=== PATIENT | female | born 1960 | race Caucasian/White ===

== ENCOUNTER 2018-10-04 16:21 | Observation (INO) ==
[2018-10-04] MEDS ORDERED: Morphine Inj 4 MG/ML Vial IV.PUSH ONE (17:12)
[2018-10-04] MEDS ORDERED: Sodium Chlor 0.9% Inj 500 ML IV.SIG ONE (17:12)
--- NOTE | 2018-10-04 17:21 | ED ---
HPI General Chief Complaint: Shortness of Breath/Dyspnea Stated Complaint: SOB x3 Days Time Seen by Provider: 10/04/18 16:57 Source: patient Mode of arrival: ambulatory Limitations: no limitations History of Present Illness HPI narrative: The patient is a 58-year-old female who presents to the emergency department via private vehicle for chest pain and shortness of breath. The patient states she had a recent sinus and upper respiratory infection while she was in [facility]. The patient was on antibiotics and then subsequently hospitalized for 5 days while she was in [facility]. The patient was discharged home and subsequently developed chest pain. The chest pain is described as pressure, heaviness, substernal, nonradiating, and associated shortness of breath. The patient's symptoms are worse when she lies supine, however, are worse with exertion such as power washing the house. The patient denies any history of pulmonary embolism or DVT, does note recent travel, recent hospitalization, but denies any recent surgery. The patient saw her primary physician, Dr. Haylie Lewis, who placed her on antibiotics. The patient denies any fever, chills, sweats, or new cough. The patient does have a history of tobacco use, quit smoking 3-4 weeks ago. The patient does have a history of borderline hypertension, hyperlipidemia, but denies any history of CAD, diabetes, significant early family medical history for heart disease. Symptoms are moderate and progressive. MD complaint: Reports chest pain Onset (ago): week(s) Duration: intermittent Onset: during exertion Pain location: Reports substernal Severity: moderate Severity scale (1-10): 6 Quality: Reports heaviness Pain radiation: Reports none Relieving factors: rest Exacerbating factors: exertion and supine Context: Reports recent illness and recent travel Associated symptoms: Reports dyspnea Treatments prior to arrival chest pain: Reports none Related Data On Oral Contraceptives: No Home Medications Medication Instructions Recorded Confirmed levofloxacin 500 mg PO DAILY 10/04/18 10/04/18 montelukast [Singulair] 10 mg PO QPM 10/04/18 10/04/18 omeprazole 20 mg PO DAILY 10/04/18 10/04/18 rosuvastatin 20 mg PO DAILY 10/04/18 10/04/18 Allergies Allergy/AdvReac Type Severity Reaction Status Date / Time No Known Allergies Allergy Verified 10/04/18 16:28 Review of Systems ROS: all other systems reviewed are negative PMFSH Medical History Medical History GERD (gastroesophageal reflux disease) (Acute) Hiatal hernia (Acute) High cholesterol (Acute) Seasonal allergies (Acute) Surgical History Surgical History History of arthroscopic knee surgery (Acute) History of delivery (Acute) History of ear surgery (Acute) Social History Social History Substance History: No History of Abuse Smoking Status: Former smoker How Often Do You Have a Drink Containing Alcohol: 2 to 4 times a month Recent Travel in [facility] within the Last 8 Weeks: No Recent Out of Country Travel within the Last 8 Weeks: No Exam Narrative Exam Narrative: GENERAL: Awake, alert, pleasant 58-year-old female who appears her stated age and is in no acute respiratory distress. SKIN: Focused skin assessment warm/dry. HEAD: Atraumatic. Normocephalic. EYES: Pupils equal and round. No scleral icterus. No injection or drainage. ENT: No nasal bleeding or discharge. Mucous membranes pink and moist. NECK: Trachea midline. No JVD. CARDIOVASCULAR: Regular rate and rhythm. No murmur appreciated. Heart rate in the 80s. RESPIRATORY: No accessory muscle use. Clear to auscultation. Breath sounds equal bilaterally. GASTROINTESTINAL: Abdomen soft, non-tender, nondistended. MUSCULOSKELETAL: No obvious deformities. No clubbing. No cyanosis. No edema. Negative Homans sign bilaterally. NEUROLOGICAL: Awake and alert. No obvious cranial nerve deficits. Motor grossly within normal limits. Normal speech. PSYCHIATRIC: Appropriate mood and affect; insight and judgment normal. Course Initial Documented Vital Signs Temperature 97.9 F 10/04/18 16:32 Pulse Rate 60 10/04/18 16:32 Respiratory Rate 18 10/04/18 16:32 Blood Pressure 176/81 H 10/04/18 16:32 Pulse Oximetry 99 10/04/18 16:32 Last Documented Vital Signs Temperature 97.9 F 10/04/18 16:32 Pulse Rate 57 L 10/04/18 17:58 Respiratory Rate 18 10/04/18 17:58 Blood Pressure 175/80 H 10/04/18 17:58 Pulse Oximetry 100 10/04/18 17:58 Clinical Decision Support PERC Rule Age greater than or equal to 50: Yes HR greather than or equal to 100: No Sa02 on room air is less than 95%: No Unilateral Leg Swelling: No Hemoptysis: No Recent Surgery or Trauma: No Prior PE or DVT: No Hormone Use: No Wells' Criteria Questions Clinical Signs and Symptoms of DVT: No PE is primary diagnosis or equally likely: No Heart Rate greater than 100: No Immobilized at least 3 days or Surgery in previous 4 weeks: Yes Previous, objectively diagnosed PE or DVT: No Hemoptysis: No Malignancy with treatment within 6 months or palliative: No Wells' Criteria Score Wells' Criteria Score: 1.5 Medical Decision Making MDM Narrative Medical decision making narrative: IV was established, labs are drawn and sent, and the patient was placed on cardiac telemetry monitoring and continuous pulse oximetry monitoring. EKG was ordered and interpreted. Chest x-ray was obtained. D-dimer was sent to lab this patient was recently hospitalized and recently had a prolonged travel from [facility]. Troponin and CPK were sent to lab. The patient was administered aspirin, morphine, Zofran, and Nitropaste. D -dimer was 0.25, therefore, no indication for CT pulmonary angiogram. The patient's troponin and CPK are unremarkable. BNP is unremarkable. The patient does have chest pressure with shortness of breath, will require serial cardiac enzymes and further evaluation for stress test. If stress test is unremarkable , patient may be candidate for echocardiogram to rule out pericardial effusion, however, she is not tachycardic. I discussed the patient is with Dr. Flor who agrees with 23-hour observation. Medical Screen Exam Complete: Yes Emergency Medical Condition: Yes Differential Diagnosis Differential Diagnosis: Differential diagnosis includes ACS, STEMI, pulmonary embolism, pneumonitis, pneumonia, pericardial effusion, pleural effusion, GERD, pancreatitis, esophageal spasm. Lab Data Lab results reviewed: Yes I reviewed the patient's lab results. Result diagrams: 10/04/18 17:36 10/04/18 17:36 Lab Results 10/04/18 10/04/18 10/04/18 Range/Units 17:36 17:36 17:36 CBC w Diff Auto diff final WBC 5.9 (4.0-11.0) th/mm3 RBC 4.94 (4.00-5.30) mil/mm3 Hgb 14.5 (11.6-15.3) gm/dL Hct 43.5 (35.0-46.0) % MCV 88.2 (80.0-100.0) fL MCH 29.4 (27.0-34.0) pg MCHC 33.3 (32.0-36.0) % RDW 13.0 (11.6-17.2) % Plt Count 223 (150-450) th/mm3 MPV 8.5 (7.0-11.0) fL Neut % (Auto) 42.5 (16.0-70.0) % Lymph % (Auto) 49.1 H (9.0-44.0) % Baker % (Auto) 6.9 (0.0-8.0) % Eos % (Auto) 0.9 (0.0-4.0) % Baso % (Auto) 0.6 (0.0-2.0) % Neut # (Auto) 2.5 (1.8-7.7) th/mm3 Lymph # (Auto) 2.9 (1.0-4.8) th/mm3 Baker # (Auto) 0.4 (0.0-0.9) th/mm3 Eos # (Auto) 0.1 (0.0-0.4) th/mm3 Baso # (Auto) 0.0 (0.0-0.2) th/mm3 WBC Differential . Differential Comment . PT 10.8 (9.8-11.6) sec INR 1.1 Ratio APTT 30.3 (23.4-31.7) sec D-Dimer Quant (PE/DVT) 0.25 (0.00-0.50) mg/L FEU Sodium 140 (136-145) meq/L Potassium 3.8 (3.5-5.1) meq/L Chloride 107 (98-107) meq/L Carbon Dioxide 24.7 (21.0-32.0) meq/L Anion Gap 8 (5-15) meq/L BUN 9 (7-18) mg/dL Creatinine 0.71 (0.50-1.00) mg/dL Estimated GFR 85 L (>89) mL/min Random Glucose 80 (74-106) mg/dL Calcium 9.2 (8.5-10.1) mg/dL Magnesium 2.0 (1.5-2.5) mg/dL Total Bilirubin 1.6 H (0.2-1.0) mg/dL AST 23 (15-37) U/L ALT 24 (10-53) U/L Alkaline Phosphatase 91 (45-117) U/L Total Creatine Kinase 115 (26-192) U/L CK-MB (CK-2) 1.2 (0.5-3.6) ng/mL Troponin I Less than 0.02 L (0.02-0.05) ng/mL B-Natriuretic Peptide (0-100) pg/mL Total Protein 7.9 (6.4-8.2) g/dL Albumin 4.2 (3.4-5.0) g/dL Lipase 120 (73-393) U/L 10/04/18 Range/Units 17:36 CBC w Diff WBC (4.0-11.0) th/mm3 RBC (4.00-5.30) mil/mm3 Hgb (11.6-15.3) gm/dL Hct (35.0-46.0) % MCV (80.0-100.0) fL MCH (27.0-34.0) pg MCHC (32.0-36.0) % RDW (11.6-17.2) % Plt Count (150-450) th/mm3 MPV (7.0-11.0) fL Neut % (Auto) (16.0-70.0) % Lymph % (Auto) (9.0-44.0) % Baker % (Auto) (0.0-8.0) % Eos % (Auto) (0.0-4.0) % Baso % (Auto) (0.0-2.0) % Neut # (Auto) (1.8-7.7) th/mm3 Lymph # (Auto) (1.0-4.8) th/mm3 Baker # (Auto) (0.0-0.9) th/mm3 Eos # (Auto) (0.0-0.4) th/mm3 Baso # (Auto) (0.0-0.2) th/mm3 WBC Differential Differential Comment PT (9.8-11.6) sec INR Ratio APTT (23.4-31.7) sec D-Dimer Quant (PE/DVT) (0.00-0.50) mg/L FEU Sodium (136-145) meq/L Potassium (3.5-5.1) meq/L Chloride (98-107) meq/L Carbon Dioxide (21.0-32.0) meq/L Anion Gap (5-15) meq/L BUN (7-18) mg/dL Creatinine (0.50-1.00) mg/dL Estimated GFR (>89) mL/min Random Glucose (74-106) mg/dL Calcium (8.5-10.1) mg/dL Magnesium (1.5-2.5) mg/dL Total Bilirubin (0.2-1.0) mg/dL AST (15-37) U/L ALT (10-53) U/L Alkaline Phosphatase (45-117) U/L Total Creatine Kinase (26-192) U/L CK-MB (CK-2) (0.5-3.6) ng/mL Troponin I (0.02-0.05) ng/mL B-Natriuretic Peptide 23 (0-100) pg/mL Total Protein (6.4-8.2) g/dL Albumin (3.4-5.0) g/dL Lipase (73-393) U/L Imaging Data Radiologist's impression: Chest X-Ray 10/04/18 17:12 CONCLUSION: No acute cardiopulmonary findings. ECG Data EKG Prior to Arrival: No Attestation: I personally reviewed and interpreted this ECG as follows: Interpretation: EKG reveals sinus bradycardia with a heart rate of 52. Inverted T waves in lead III. Acute wave in lead III. Low QRS voltage precordial leads. Discharge Plan Discharge Disposition Patient Disposition: ED Admit(ED Internal Use Only) Discharge Condition Condition: Stable Discharge Order Discharge Orders: ED Use Only Admit Order (Routine); Ordered 10/04/18 Ordered By: James Michaud Discharge Details Diagnosis: Chest pain Physicians Team ED Provider: James Michaud Primary Care Provider: Huan Lewis Rxs /Orders / Referrals /Forms Prescriptions: No Action montelukast [Singulair] 10 mg Tablet 10 mg PO QPM RF: 0 levofloxacin 500 mg Tablet 500 mg PO DAILY RF: 0 rosuvastatin 20 mg Tablet 20 mg PO DAILY RF: 0 omeprazole 20 mg Tablet,Delayed Release (Dr/Ec) 20 mg PO DAILY RF: 0 Status ED Status: Admitted Observation Patient
[2018-10-04 17:48] LABS: Baso % (Auto) 0.6 % (0.0-2.0); Eos # (Auto) 0.1 th/mm3 (0.0-0.4); Eos % (Auto) 0.9 % (0.0-4.0); Hematocrit 43.5 % (35.0-46.0); Hemoglobin 14.5 gm/dL (11.6-15.3); Lymph # (Auto) 2.9 th/mm3 (1.0-4.8); Lymph % (Auto) 49.1 % (9.0-44.0); Mean Corpuscular HGB Conc 33.3 % (32.0-36.0); Mean Corpuscular Hemoglobin 29.4 pg (27.0-34.0); Mean Corpuscular Volume 88.2 fL (80.0-100.0); Mean Platelet Volume 8.5 fL (7.0-11.0); Mono # (Auto) 0.4 th/mm3 (0.0-0.9); Mono % (Auto) 6.9 % (0.0-8.0); Neut # (Auto) 2.5 th/mm3 (1.8-7.7); Neut % (Auto) 42.5 % (16.0-70.0); Platelet Count 223 th/mm3 (150-450); Red Blood Count 4.94 mil/mm3 (4.00-5.30); White Blood Count 5.9 th/mm3 (4.0-11.0)
--- NOTE | 2018-10-04 17:48 | XR ---
EXAM DATE: 10/04/2018 5:45 PM EST AGE/SEX: 58 years / Female INDICATIONS: Chest pain. Patient states she was "over medicated" and now has pressure on her chest. CLINICAL DATA: This is the patient's initial encounter. Patient reports that signs and symptoms have been present for 3 days and indicates a pain score of 2/10. MEDICAL/SURGICAL HISTORY: . High cholesterol. None. COMPARISON: No prior exams available for comparison. FINDINGS: A single AP view of the chest demonstrates the lungs to be symmetrically aerated without evidence of mass, focal consolidation or effusion. The cardiomediastinal contours are unremarkable. Osseous str uctures are grossly intact. CONCLUSION: No acute cardiopulmonary findings. Electronically signed by: Sneha Callejas MD Board Certified Radiologist 10/04/2018 5:47 PM EST
[2018-10-04 17:58] LABS: Chloride 107 meq/L (98-107); Potassium 3.8 meq/L (3.5-5.1); Sodium 140 meq/L (136-145)
[2018-10-04 18:01] LABS: Albumin 4.2 g/dL (3.4-5.0); Calcium 9.2 mg/dL (8.5-10.1)
[2018-10-04 18:02] LABS: Anion Gap 8 meq/L (5-15); Blood Urea Nitrogen 9 mg/dL (7-18); Carbon Dioxide 24.7 meq/L (21.0-32.0); Glucose,Random 80 mg/dL (74-106); Lipase 120 U/L (73-393)
[2018-10-04 18:05] LABS: Activated Partial Thrombo Time 30.3 sec (23.4-31.7); Alanine Aminotransferase 24 U/L (10-53); Aspartate Aminotransferase 23 U/L (15-37); Glomerular Filtration Rate 85 mL/min (>89); INR 1.1 Ratio; Prothrombin Time 10.8 sec (9.8-11.6)
[2018-10-04 18:07] LABS: Total Protein 7.9 g/dL (6.4-8.2)
[2018-10-04 18:08] LABS: Alkaline Phosphatase 91 U/L (45-117); Creatine Kinase 115 U/L (26-192); D-Dimer 0.25 mg/L FEU (0.00-0.50)
[2018-10-04 18:20] LABS: Creatine Kinase MB 1.2 ng/mL (0.5-3.6)
[2018-10-04] MEDS ORDERED: Sodium Chlor 0.9% Inj 500 ML IV.CONT SCH (19:22)
--- NOTE | 2018-10-05 05:34 | ECG ---
Date Performed: 10/04/2018 Time Performed: 18:06:44 PTAGE: 58 years EKG: SINUS BRADYCARDIA LOW QRS VOLTAGE IN PRECORDIAL LEADS BORDERLINE ECG Compared to prior elec trocardiogram, rate has slowed and R wave progression is less prominent. PREVIOUS TRACING : 02/15/2010 22.47 DOCTOR: Moy Graff Interpretating Date/Time 10/05/2018 05:32:52
[2018-10-05] MEDS ORDERED: Regadenoson Inj 0.4 MG/5 ML Syringe IV.PUSH ONE (10:30)
[2018-10-05] MEDS ORDERED: Sod Chloride 0.9% Inj 1,000 ML IV.CONT SCH (10:45)
--- NOTE | 2018-10-05 10:50 | P.HP ---
History of Present Illness Primary Care Physician: Huan Lewis MD Chief Complaint: Chest pain History of Present Illness: This is a 58-year-old with a known medical history of hyperlipidemia presented the ED with complaints of chest pain and shortness of breath. Patient states that the chest pain started roughly 4 weeks ago and has been intermittent, when yesterday she developed a sudden chest discomfort at rest, the pain was located in her midsternal chest, and radiated to her left side, was characteristically heavy, states that she felt like someone was sitting on her chest. Denies any associated nausea, vomiting or sweating. Does admit to associated shortness of breath. It should be noted that patient has recently traveled to [facility], was hospitalized at that time for an upper respiratory infection was treated with antibiotics and sent home. Patient states her symptoms have continued, she complains of sinus congestion. Denies any fevers, chills, cough, abdominal pain, nausea vomiting, diarrhea or dysuria. She does state she has taken 4 days of Levaquin without relief of her symptoms. At the time of assessment patient states the chest pain has not improved although is still present. Denies previous history of cardiovascular disease or CAD, has not underwent a stress test in the past. Denies ever having an echocardiogram. Patient recently quit smoking in July, admits to a 40-year pack history. - Diagnosis (1) Chest pain Review of Systems All other systems reviewed negative except as stated in HPI PMFSH - History History Provided By: Patient - Medical History Medical History: Medical History (Last Reviewed 10/05/18 @ 10:31 by Adeola Aaron) GERD (gastroesophageal reflux disease) Hiatal hernia High cholesterol Seasonal allergies - Surgical History Surgical History: Surgical History (Last Reviewed 10/05/18 @ 10:31 by Adeola Aaron) History of arthroscopic knee surgery History of delivery History of ear surgery - Family History Family History: Family History (Last Updated 10/05/18 @ 10:31 by Adeola Aaron) Other Family history in first degree relatives is unremarkable Family history non-contributory - Social History I have reviewed the patient's Social History: Yes - Tobacco History Tobacco Use In Past 30 Days: No Smoking Status: Former smoker Tobacco Type: Cigarettes - Alcohol History How Often Do You Have a Drink Containing Alcohol: Monthly or less - Substance Use History Substance History: No History of Abuse - Travel History Recent Travel in the [place] Within the Last 8 Weeks: No Recent Travel Out of the Country Within the Last 8 Weeks: No - Immunization History Tetanus Immunization: Unsure Medications and Allergies Active Medications: Active Medications Albuterol (Albuterol Neb (Prn)) 2.5 mg NEB UNSCH PRN PRN Reason: SHORTNESS OF BREATH/WHEEZING Sodium Chloride (Ns Inj) 500 mls @ 0 mls/hr IV.CONT .Q0M ROSA MARIA Sodium Chloride (Ns Flush) 2 ml IV.FLUSH UNSCH PRN PRN Reason: FLUSH AFTER USING IV ACCESS Allergies Allergy/AdvReac Type Severity Reaction Status Date / Time No Known Allergies Allergy Verified 10/04/18 16:28 Home Medications Medication Instructions Recorded Confirmed Type levofloxacin 500 mg PO DAILY 10/04/18 10/04/18 History montelukast [Singulair] 10 mg PO QPM 10/04/18 10/04/18 History omeprazole 20 mg PO DAILY 10/04/18 10/04/18 History rosuvastatin 20 mg PO DAILY 10/04/18 10/04/18 History Exam Vital signs: Vital Signs 10/04/18 16:32 10/04/18 17:12 10/04/18 17:58 Temperature 97.9 F Pulse Rate 60 57 L Respiratory Rate 18 18 Blood Pressure 176/81 H 175/80 H Pulse Oximetry 99 100 100 10/04/18 19:07 10/04/18 20:00 10/04/18 22:20 Temperature 97.6 F Pulse Rate 57 L 63 82 Respiratory Rate 18 18 18 Blood Pressure 168/94 H 140/74 133/61 Pulse Oximetry 100 98 99 10/05/18 00:00 10/05/18 04:00 10/05/18 04:07 Temperature 98.0 F 98 F Pulse Rate 84 55 L 55 L Respiratory Rate 18 18 Blood Pressure 115/61 100/56 L Pulse Oximetry 98 99 10/05/18 04:52 10/05/18 07:18 10/05/18 09:27 Temperature Pulse Rate 69 64 59 L Respiratory Rate 16 16 16 Blood Pressure 108/54 L 121/65 111/65 Pulse Oximetry 100 100 Intake & Output 10/04/18 10/05/18 10/05/18 18:59 06:59 18:59 Intake Total 500 / 500 Balance 500 / 500 Weight 88.904 kg Intake: IV 500 / 500 NS Inj 500 ML @ 500 mls/hr IV. 500 / 500 SIG ONCE ONE Rx#:[id number] Narrative: GENERAL: Well-developed, well-nourished patient in NAD. Congested SKIN: Warm and dry. No rash. HEAD: Normocephalic. Atraumatic. EYES: Pupils equal and round. No scleral icterus. No injection or drainage. ENT: No nasal bleeding or discharge. Mucous membranes pink and moist. NECK: Supple. Trachea midline. CARDIOVASCULAR: Regular rate and rhythm. S1, S2 noted. No murmur appreciated. No chest pain to palpation RESPIRATORY: No accessory muscle use. Diminished breath sounds. Breath sounds equal bilaterally. GASTROINTESTINAL: Abdomen soft, non-tender, nondistended. Normoactive bowel sounds x4. MUSCULOSKELETAL: No obvious deformities. Extremities without clubbing, cyanosis mild trace edema bilateral lower extremities NEUROLOGICAL: Awake and alert. No obvious cranial nerve deficits. Motor grossly within normal limits. 5/5 muscle strength in bilateral upper and lower extremities. Normal speech. PSYCHIATRIC: Appropriate mood and affect; insight and judgment normal. Results - Labs CBC & Chem 7: 10/04/18 17:36 10/04/18 17:36 Labs: Laboratory Results - last 24 hr 10/04/18 10/04/18 10/04/18 17:36 17:36 17:36 CBC w Diff Auto diff final WBC 5.9 RBC 4.94 Hgb 14.5 Hct 43.5 MCV 88.2 MCH 29.4 MCHC 33.3 RDW 13.0 Plt Count 223 MPV 8.5 Neut % (Auto) 42.5 Lymph % (Auto) 49.1 H [place] % (Auto) 6.9 Eos % (Auto) 0.9 Baso % (Auto) 0.6 Neut # (Auto) 2.5 Lymph # (Auto) 2.9 [place] # (Auto) 0.4 Eos # (Auto) 0.1 Baso # (Auto) 0.0 WBC Differential . Differential Comment . PT 10.8 INR 1.1 APTT 30.3 D-Dimer Quant (PE/DVT) 0.25 Sodium 140 Potassium 3.8 Chloride 107 Carbon Dioxide 24.7 Anion Gap 8 BUN 9 Creatinine 0.71 Estimated GFR 85 L Random Glucose 80 Calcium 9.2 Magnesium 2.0 Total Bilirubin 1.6 H AST 23 ALT 24 Alkaline Phosphatase 91 Total Creatine Kinase 115 CK-MB (CK-2) 1.2 Troponin I Less than 0.02 L B-Natriuretic Peptide Total Protein 7.9 Albumin 4.2 Lipase 120 10/04/18 10/04/18 10/05/18 17:36 21:00 00:01 CBC w Diff WBC RBC Hgb Hct MCV MCH MCHC RDW Plt Count MPV Neut % (Auto) Lymph % (Auto) [place] % (Auto) Eos % (Auto) Baso % (Auto) Neut # (Auto) Lymph # (Auto) [place] # (Auto) Eos # (Auto) Baso # (Auto) WBC Differential Differential Comment PT INR APTT D-Dimer Quant (PE/DVT) Sodium Potassium Chloride Carbon Dioxide Anion Gap BUN Creatinine Estimated GFR Random Glucose Calcium Magnesium Total Bilirubin AST ALT Alkaline Phosphatase Total Creatine Kinase CK-MB (CK-2) Troponin I Less than 0.02 L Less than 0.02 L B-Natriuretic Peptide 23 Total Protein Albumin Lipase - Imaging Impressions Chest X-Ray 10/04/18 17:12 CONCLUSION: No acute cardiopulmonary findings. Caprini VTE Risk Assessment Caprini VTE Risk Assessment: No/Low Risk (score <= 1) Caprini Risk Assessment Model: Point Value = 1 Point Value = 2 Point Value = 3 Point Value = 5 Age 41-60 Minor surgery BMI > 25 kg/m2 Swollen legs Varicose veins or History of unexplained or recurrent spontaneous Oral contraceptives or hormone replacement Sepsis (< 1 month) Serious lung disease, including pneumonia (< 1 month) Abnormal pulmonary function Acute myocardial infarction Congestive heart failure (< 1 month) History of inflammatory bowel disease Medical patient at bed rest Age 61-74 Arthroscopic surgery Major open surgery (> 45 min) Laparoscopic surgery (> 45 min) Malignancy Confined to bed (> 72 hours) Immobilizing plaster cast Central venous access Age >= 75 History of VTE Family history of VTE Factor V Leiden Prothrombin [id number] Lupus anticoagulant Anticardiolipin antibodies Elevated serum homocysteine Heparin-induced thrombocytopenia Other congenital or acquired thrombophilia Stroke (< 1 month) Elective arthroplasty Hip, pelvis, or leg fracture Acute spinal cord injury (< 1 month) Prophylaxis Regimen: Total Risk Factor Score Risk Level Prophylaxis Regimen 0-1 Low Early ambulation 2 Moderate Order ONE of the following: *Sequential Compression Device (SCD) *Heparin 5000 units SQ BID 3-4 Higher Order ONE of the following medications: *Heparin 5000 units SQ TID *Enoxaparin/Lovenox 40 mg SQ daily (WT < 150 kg, CrCl > 30 mL/min) *Enoxaparin/Lovenox 30 mg SQ daily (WT < 150 kg, CrCl > 10-29 mL/min) *Enoxaparin/Lovenox 30 mg SQ BID (WT < 150 kg, CrCl > 30 mL/min) AND/OR *Sequential Compression Device (SCD) 5 or more Highest Order ONE of the following medications: *Heparin 5000 units SQ TID (Preferred with Epidurals) *Enoxaparin/Lovenox 40 mg SQ daily (WT < 150 kg, CrCl > 30 mL/min) *Enoxaparin/Lovenox 30 mg SQ daily (WT < 150 kg, CrCl > 10-29 mL/min) *Enoxaparin/Lovenox 30 mg SQ BID (WT < 150 kg, CrCl > 30 mL/min) AND *Sequential Compression Device (SCD) Assessment and Plan - Assessment (1) Chest pain Code(s): R07.9 - Chest pain, unspecified Status: Acute - Plan This is a 58-year-old female patient with a known medical history of hypertension, hyperlipidemia presented to the ED with complaints of chest pain and worsening shortness of breath. Patient has recently been diagnosed with sinusitis has been on antibiotics and seen by her PCP. Recent travel to [facility] , subsequently was hospitalized for 5 days and treated for upper respiratory infection. Chest pain, atypical -Patient will be admitted to the chest pain center for observation. Serial EKGs and serial troponins been ordered for ruling out ACS purposes. Serial troponins flat. -EKG reviewed, showing sinus bradycardia, some inverted T waves in lead III. Will continue on cardiac telemetry, monitor for any arrhythmias. -Chest pain has continued despite Nitroglycerin. -Aspirin given in ED. Will continue. -Chest x-ray showing no acute cardiopulmonary disease. -Will check an ECHO for effusion evaluation. BNP normal. -CBC and CMP reviewed, essentially unremarkable. D-dimer negative. -Patient ruled out for ACS, will undergo a myocardial perfusion scan for further evaluate for any possibility of ischemia. -Further hospitalization and treatment plan will depend on nuclear imaging results. -Patient is stable at this time and agreeable to the plan. Upper respiratory infection Sinusitis -Failed outpatient antibiotics. Continued congestion. No Leukocytosis although has been on Levaquin at home x 4 days. -Will add Augmentin. Continue to monitor. Hyperlipemia, chronic -Continue medication. DVT Prophylaxis: SCDs. Ambulation as tolerated. (1) Chest pain Qualifiers: Chest pain type: unspecified Qualified Code(s): R07.9 - Chest pain, unspecified
[2018-10-05] MEDS ORDERED: Amoxicillin/Clavulanate 875/125 MG Tablet PO SCH (11:00)
--- NOTE | 2018-10-05 15:52 | NM ---
EXAM DATE: 10/05/2018 3:47 PM EST AGE/SEX: 58 years / Female INDICATIONS:Angina. . Chest pain and shortness of breath. CLINICAL DATA: This is the patient's initial encounter. Patient reports that signs and symptoms have been present for 1 day and indicates a pain score of 4/10. MEDICAL/SURGICAL HISTORY: Gastroesophageal reflux disease. Hiatal hernia. Hypercholesterolemi a. section. COMPARISON: [facility], CHEST 1V SINGLE AP, 10/04/2018. . DOSE: 8.6 mCi Tc 99m Myoview at rest 26.2 mCi [id number] at stress 0.4 mg Lexiscan STRESS SYMPTOMS: Chest tightness, headache, dyspnea. EJECTION FRACTION: 63 % TECHNIQUE: The patient underwent pharmacologic stress with infusion of prescribed dose. Continuous ECG tracing was monitored during stress. Gated SPECT imaging was performed after stress and conventi onal SPECT imaging was performed at rest. The examination was performed on a SPECT/CT scanner, both attenuation and non-corrected datasets were reviewed. FINDINGS: Distribution: The maximum perfused segment at stress is in the inferior wall. Perfusion Study: The pattern of perfusion at stress demonstrates a fixed defect in low anteroapical wall on the nonattenuation corrected images and fills and partially on the attenuation corrected bhavya ges. No significant ischemia is identified. There is of the micropuncture fusion appears intact. Gated Study: There are intact wall motion and wall thickening without hypokinetic or dyskinetic segm ents. The ejection fraction is calculated at 63%. RISK CATEGORY: Low (<1% Annual Mortality Rate) CONCLUSION: 1. No appreciable ischemia. Electronically signed by: Juan Ramon Castro MD Board Certified Radiologist 10/05/2018 3:51 PM EST
--- NOTE | 2018-10-05 17:14 | ECHRPT ---
Indication: Effusion CONCLUSIONS Normal left ventricular size. Wall thickness is measured at the upper limits of normal. The left ventricular systolic function is normal with an estimated ejection fraction in the range of 55-60%. The left atrial size is upper limits of normal. Trace mitral valve regurgitation. Mitral annular calcification is present. There is trace tricuspid valve regurgitation. The estimated pulmonary arterial pressure is 35 mmHg. BP: / HR: Rhythm: MEASUREMENTS (Male / Female) Normal Values Technical Quality:Fair 2D ECHO LV Diastolic Diameter PLAX 3.9 cm 4.2 - 5.9 / 3.9 - 5.3 cm LV Systolic Diameter PLAX 2.5 cm IVS Diastolic Thickness 0.9 cm 0.6 - 1.0 / 0.6 - 0.9 cm LVPW Diastolic Thickness 1.0 cm 0.6 - 1.0 / 0.6 - 0.9 cm LV Relative Wall Thickness 0.5 RV Internal Dim ED PLAX 3.3 cm LVOT Diameter 1.9 cm Aortic Root Diameter 2.8 cm LA Systolic Diameter LX 3.8 cm 3.0 - 4.0 / 2.7 - 3.8 cm DOPPLER AV Peak Velocity 151.0 cm/s AV Peak Gradient 9.1 mmHg LVOT Peak Velocity 102.0 cm/s LVOT Peak Gradient 4.2 mmHg AV Area Cont Eq pk 1.9 cm Mitral E Point Velocity 75.5 cm/s Mitral A Point Velocity 58.2 cm/s Mitral E to A Ratio 1.3 LV E' Lateral Velocity 12.2 cm/s Mitral E to LV E' Lateral Ratio 6.2 LV E' Septal Velocity 9.8 cm/s Mitral E to LV E' Septal Ratio 7.7 TR Peak Velocity 251.0 cm/s TR Peak Gradient 25.2 mmHg Right Atrial Pressure 10.0 mmHg Pulmonary Artery Systolic Pressu 35.2 mmHg Right Ventricular Systolic Press 35.2 mmHg PV Peak Velocity 88.2 cm/s PV Peak Gradient 3.1 mmHg FINDINGS LEFT VENTRICLE Normal left ventricular size. Wall thickness is measured at the upper limits of normal. The left ventricular systolic function is normal with an estimated ejection fraction in the range of 55-60%. RIGHT VENTRICLE Normal right ventricular size and systolic function. LEFT ATRIUM The left atrial size is upper limits of normal. RIGHT ATRIUM The right atrial size is normal. ATRIAL SEPTUM Normal atrial septal thickness without atrial level shunting by limited color doppler interrogation. AORTA The aortic root and proximal ascending aorta are normal in size on limited imaging. MITRAL VALVE Trace mitral valve regurgitation. Mitral annular calcification is present. AORTIC VALVE Trileaflet aortic valve. No aortic valve stenosis or regurgitation. TRICUSPID VALVE There is trace tricuspid valve regurgitation. The estimated pulmonary arterial pressure is 35 mmHg. PULMONARY VALVE No pulmonary valve regurgitation or stenosis. VESSELS The inferior vena cava is normal in size. PERICARDIUM No pericardial effusion. Raghu Parra MD, FACC (Electronically Signed) Final Date:05 October 2018 17:13
[2018-10-05] MEDS ORDERED: Montelukast 10 MG Tablet PO SCH (18:00)
[2018-10-06] MEDS ORDERED: Pantoprazole Sodium 20 MG DR Tablet PO SCH (09:00)
--- NOTE | 2018-10-06 10:43 | TR ---
Date Performed: 10/05/2018 Time Performed: 14:54:00 DOCTOR: Segun Arteaga DRUG LIST: CLINICAL HISTORY: REASON FOR TEST: Angina REASON FOR ENDING: OBSERVATION: CONCLUSION: COMMENTS: Lexiscan stress test was performed under standard four minute protocol. Radionuclide was injected one minute prior to ending the test. No electrocardiographic abormalities were present t o suggest ischemia. Nuclear imaging and interpretation are pending.
== END 2018-10-05 18:30 | disposition home or self-care (01) ==
LOC: PHEDA 16:21 → PHED 16:21 → PHEDH 10-05 01:38 → PH3 10-05 11:55
PROVIDERS: ADMIT Internal Medicine; ATTEND Internal Medicine
CPT/HCPCS: 71010; 71045; 78452; 80053; 82550; 82552; 83520; 83690; 83735; 83880; 84484; 85025; 85379; 85610; 85730; 90761; 90774; 90775; 93005; 93017; 93306; 96361; 96374; 96375; 99285; A9502; C8952; G0378; J2270; J2405; J2785; J7030; J7040; Q9969